=== PATIENT | female | born 1965 | race Native Hawaiian/Other Pacific Islander ===

== ENCOUNTER 2016-10-11 05:28 | Outpatient (CLI) | payer OTHER | END 2016-10-11 05:32 | disposition short-term general hospital (02) | LOC: AMB 05:28 | DX: M25.562 Pain in left knee (principal); V49.88XA Car occupant (driver) (passenger) injured in other specified transport accidents, initial encounter; Y92.488 Other paved roadways as the place of occurrence of the external cause | CPT/HCPCS: A0425; A0429 ==

== ENCOUNTER 2016-10-11 05:41 | Emergency (ER) | payer OTHER ==
[~2016-10-11] VITALS: Ht 152.4 cm; Wt 95.3 kg
[2016-10-11 05:54] VITALS: TEMP 98.9
[2016-10-11 08:32] VITALS: BP 117/54
== END 2016-10-11 08:34 | disposition home or self-care (01) ==
LOC: ED 05:41
DX: S80.02XA Contusion of left knee, initial encounter (principal); V43.52XA Car driver injured in collision with other type car in traffic accident, initial encounter; Y92.89 Other specified places as the place of occurrence of the external cause
CPT/HCPCS: 96372; 99283; J1885